=== PATIENT | female | born 1960 | race Caucasian/White ===

== ENCOUNTER → 2019-01-18 | Outpatient (CLI) | payer OTHER ==
--- NOTE | ~2019-01-18 | EEG ---
[facility] [place] [address] ELECTROENCEPHALOGRAM Name: PAYTON NULL Room [facility] [id number] Admission: 01/18/19 Attend Phys: Sebastián Garg MD Discharge: Date of : 64 Report #: [id number] THIS REPORT FOR: //name// CC: Gina Garg DATE OF SERVICE: 01/18/2019 This patient is being evaluated for the possibility of seizure. EEG was done by placing the electrode by standard 10-20 system of electrode placement. Both referential and sequential montages were used for recording. Background activity in this patient's EEG is about 10 Hz and 30 microvolt. There is a symmetrical activity. Photic stimulation was unremarkable. Throughout the record, no active epileptiform activity was noticed. IMPRESSION: This patient's EEG is unremarkable. Thank you very much for this referral. By: [id number] Sebastián Garg MD /nt
== END ==
LOC: NEURO 08:33
DX: G40.209 Localization-related (focal) (partial) symptomatic epilepsy and epileptic syndromes with complex partial seizures, not intractable, without status epilepticus (principal); F41.9 Anxiety disorder, unspecified